=== PATIENT | male | born 1945 | race Caucasian/White ===

== ENCOUNTER 2016-09-07 07:10 | Day surgery (SDC) | payer MEDICARE ==
[2016-09-04 15:36] LABS: HEMATOCRIT 42.7 % (42.0-54.0); HEMOGLOBIN 14.1 g/dL (13.5-17.5); MCH 30.6 pg (26.0-34.0); MCV 92.6 fL (80.0-100.0); MEAN PLATELET VOLUME 11.6 fL (7.4-10.4); RBC 4.61 10x6/uL (4.20-6.10); RDW 14.2 % (11.5-14.5); WBC 9.2 10x3/uL (4.8-10.8)
[2016-09-04 15:46] LABS: ANION GAP 11.3 mmol/L (8-16); CALCIUM 8.3 mg/dL (8.5-10.1); CARBON DIOXIDE 29.2 mmol/L (21.0-32.0); CREATININE - SERUM 1.2 mg/dL (0.6-1.3); POTASSIUM - SERUM 4.5 mmol/L (3.5-5.1)
[~2016-09-07] VITALS: Ht 188 cm; Wt 136.1 kg
--- NOTE | ~2016-09-07 | OP ---
PATIENT NAME: NICOLE BRAMBILA MEDICAL RECORD: [id number] :41 LOCATION:[facility] ADMISSION DATE: SURGEON: AURELIO VIRAMONTES MD DATE OF OPERATION: 09/07/2016 PREOPERATIVE DIAGNOSES: 1. Impingement syndrome of the right shoulder. 2. Acromioclavicular arthritis, right shoulder. 3. Rotator cuff tear of the right shoulder. POSTOPERATIVE DIAGNOSES: 1. Impingement syndrome of the right shoulder. 2. Acromioclavicular arthritis, right shoulder. 3. Rotator cuff tear of the right shoulder. PROCEDURES: 1. Arthroscopic rotator cuff repair. 2. Arthroscopic distal clavicle excision. 3. Arthroscopic subacromial decompression. SURGEON: Aurelio Viramontes MD. ANESTHESIA: General. INTRAOPERATIVE COMPLICATIONS: None. SUMMARY OF PATHOLOGIC FINDINGS: Consistent with the preoperative MRI, the patient had impingement, AC arthritis as well as small rotator cuff tear. OPERATIVE SUMMARY IN DETAIL: After obtaining the appropriate preoperative orthopedic surgery consent as well as anesthetic consultation, evaluation and clearance, the patient was brought to the operating room and placed on the operating table in supine position. After adequate general laryngeal mask was administered, the patient was placed in a left lateral decubitus position. All pressure points were well padded to include down leg peroneal pad as well as axillary roll. The patient was held firmly to the operating table using the vacuum pack suction system. Right upper extremity and shoulder were prepped and draped in routine sterile fashion. The arm was held in the [employer] traction boom at 30 degrees of forward flexion, 30 degrees of abduction with 10 pounds of traction laterally. Arthroscopy was established in the glenohumeral joint from a posterior portal. Anterior portal was established in the anterior safe interval. Diagnostic arthroscopy showed the patient to have rotator cuff tear as noted. A transrotator cuff portal was created. Debridement of the rotator cuff as well as decortication was carried out on the supraspinatus tendinous footprint. Attention was then turned to the subacromial space. In the subacromial space, the [place] tissue ablation system was utilized to denude the undersurface of the acromion of all soft tissue elements and released coracoacromial ligament. A 5-0 barrel olu was used to perform acromioplasty at the level of acromioclavicular joint. Then, through a separate anterior arthroscopic portal, a 1-cm distal clavicle was excised. Having completed this, attention was returned to the rotator cuff, further decortication was carried out. A single inverted mattress suture was placed with #2 FiberTape; this was anchored laterally with a 4.75 SwiveLock from [employer]. Having completed this, arthroscopy portals were closed in routine interrupted fashion using 4-0 Prolene. Sterile dressings were applied. The patient was awakened, taken to OPERATIVE REPORT [id number] NICOLE BRAMBILA recovery room in stable condition. All final needle and sponge counts were correct. TRANSINT:[id number] Voice Confirmation ID: [id number] DOCUMENT ID: [id number] ANA M ZAFAR, AURELIO HILL CC: [id number] DICTATION DATE: 09/17/161418 YOU[employer] C[employer] PROFESSIONAL: 09/17/162031 [facility] 09/07/16 [id number] [place] [address]
[~2016-09-07 07:10] MED LIST: CARBINOXAMIN PO; DIOVAN80 MG PO; GLUCOPHAGE500 MG; GLUCOPHAGE500 MG PO; HYDROCODONE-APA1 TAB PO; MOBIC7.5 MG PO; NORVASC5 MG PO; SYMBICORT 80-10.2 GM INH; TOBREX3.5 GM EACH EYE; ZOCOR20 MG PO
[2016-09-07 08:11] VITALS: BP 142/74; Ht 188 cm; Wt 136.1 kg
[2016-09-07] MEDS ORDERED: HYDROCODONE-APA1 TAB PO (11:26)
== END 2016-09-07 13:55 | disposition home or self-care (01) ==
LOC: D.OPS 07:10 → D.PAN 09:15 → D.OPS 11:15
PROVIDERS: Anesthesiology
DX: M75.41 Impingement syndrome of right shoulder (principal); M13.811 Other specified arthritis, right shoulder; M75.101 Unspecified rotator cuff tear or rupture of right shoulder, not specified as traumatic

== ENCOUNTER 2020-09-06 12:42 | Day surgery (SDC) | payer MEDICARE ==
[2016-09-07 08:11] VITALS: BMI 38.6
--- NOTE | ~2020-09-06 | OP ---
PATIENT NAME: NICOLE BRAMBILA MEDICAL RECORD: [id number] :41 LOCATION:[facility] ADMISSION DATE: SURGEON: ATIYA SUN MD DATE OF OPERATION: 09/06/2020 PREOPERATIVE DIAGNOSIS: History of polyps. MEDICATION: Propofol per anesthesia. Colonoscopy was performed. The colonoscope was inserted through the rectum and advanced to the proximal ascending colon. The prep was poor to fair. Due to poor prep and tortuosity, the scope was only able to be advanced to the proximal ascending colon despite turning the patient and pressure. The mucosa was examined. There were a few sigmoid diverticula. There were 2 small sigmoid polyps removed with cold biopsy forceps. The patient tolerated the procedure well. FINAL DIAGNOSIS: Fair prep. Scope only advanced to proximal ascending colon due to tortuosity and limited visibility due to prep. Two small sigmoid polyps removed with cold biopsy forceps. PLAN: Check histology results. Advance diet. We will order barium enema. Repeat colonoscopy planned based on above findings. TRANSINT:[id number] Voice Confirmation ID: [id number] DOCUMENT ID: [id number] ATIYA SUN MD CC: [id number] DICTATION DATE: 09/06/20 165 SCRATCHER: 09/07/20 0118 [facility] [place] 09/06/20 [id number] [place] [address]
[2020-09-06 13:28] LABS: BASOPHILS 0.8 % (0-2); HEMATOCRIT 37.2 % (42.0-54.0); HEMOGLOBIN 11.8 g/dL (13.5-17.5); IMMATURE GRANULOCYTES 0.3 % (0-5); LYMPHOCYTE ABS# 1.52 10x3/uL (1.32-3.57); LYMPHOCYTES 16.7 % (15-50); MCH 28.2 pg (26.0-34.0); MCHC 31.7 g/dL (31.0-37.0); MCV 88.8 fL (80.0-100.0); MEAN PLATELET VOLUME 10.5 fL (7.4-10.4); MONOCYTES 9.3 % (2-11); NEUTROPHIL ABS# 6.47 10x3/uL (1.78-5.38); NEUTROPHILS 70.9 % (40-80); PLATELET COUNT 185 10x3/uL (130-400); RBC 4.19 10x6/uL (4.20-6.10); WBC 9.1 10x3/uL (4.8-10.8)
[2020-09-06 13:39] LABS: ANION GAP 13.1 mmol/L (8-16); CALCIUM 8.8 mg/dL (8.5-10.1); CARBON DIOXIDE 26.5 mmol/L (21.0-32.0); CREATININE - SERUM 1.7 mg/dL (0.6-1.3); POTASSIUM - SERUM 4.6 mmol/L (3.5-5.1)
--- NOTE | 2020-09-06 17:00 | NUR ---
RECEIVED REPORT FROM ASIM PENA, STATES PT IS IN THE BATHROOM AT THIS TIME, PLACE PT ON MONITOR WHEN HE GETS OUT OF BATHROOM. 1710 CHECKED ON PT, REMAINS IN BATHROOM, STATES HE'S TRYING TO "GET SOME OUT." 1720 PT BACK FROM BATHROOM, INFORMED WE NEED TO CHECK HIS VITAL SIGNS, HE SAID HE HAS TO GO BACK TO THE BATHROOM. ASKED PT TO CALL NURSE WHEN HE'S FINISHED, HE STATED UNDERSTANDING. 1730 PT OUT OF BATHROOM, VS CHECKED AND STABLE, PT STATES HE WANTS TO GO HOME NOW, HE'S BEEN HERE OVER 4 HOURS AND HE'S READY TO LEAVE. IV THEN DC'D WITH CATH TIP INTACT AND PT DRESSING SELF. DENIES PAIN, STATES JUST A LITTLE DISCOMFORT IN ABDOMEN FROM AIR. ABD SOFT TO PALPATION ALL 4 QUADRANTS. AWAITING TRANSPORTATION HOME.
--- NOTE | 2020-09-06 17:51 | NUR ---
DISCHARGE INSTRUCTIONS GIVEN TO PT AND SPOUSE. BOTH VOICED UNDERSTANDING. DISCHARGED VIA W/C TO POV WITH SPOUSE DRIVING.
== END 2020-09-06 17:51 | disposition home or self-care (01) ==
LOC: D.OPS 12:42
PROVIDERS: Anesthesiology; ATTEND Internal Medicine Gastroenterology
DX: K63.5 Polyp of colon (principal); Z86.010 Personal history of colon polyps; J44.9 Chronic obstructive pulmonary disease, unspecified; I50.9 Heart failure, unspecified; E11.9 Type 2 diabetes mellitus without complications; Z79.84 Long term (current) use of oral hypoglycemic drugs; K57.32 Diverticulitis of large intestine without perforation or abscess without bleeding